=== PATIENT | male | born 1970 | race American Indian/Alaskan Native ===

== ENCOUNTER 2020-10-21 13:48 | Emergency (ER) | payer OTHER ==
--- NOTE | 2020-10-21 14:08 | Event Note ---
ED Screening Note ED Screening Note: 49-year-old male that presents with chest pain and SOB. Stated had covid in Feb and symptoms are worsening. This initial assessment/diagnostic orders/clinical plan/treatment(s) is/are subject to change based on patients health status, clinical progression and re- assessment by fellow clinical providers in the ED. Further treatment and workup at subsequent clinical providers discretion. Patient/guardian urged not to elope from the ED as their condition may be serious if not clinically assessed and m anaged. Initial orders include: cardiac workup
--- NOTE | 2020-10-21 14:30 | XRay Report ---
CHEST PA AND LATERAL VIEWS INDICATION: Chest Pain. COMPARISON: None. FINDINGS: Support devices: None. Heart: Within normal limits. Lungs/Pleura: No acute pulmonary or pleural findings. IMPRESSION: 1. No acute findings. Signer Name: Ja Nicolas MD Signed: 10/21/2020 2:26 PM Workstation Name: [id number]
[2020-10-21 15:03] LABS: Basophils % (Auto) 0.5 % (0.0-1.8); Eosinophils # (Auto) 0.1 K/mm3 (0.0-0.4); Eosinophils % (Auto) 1.2 % (0.0-4.3); Hemoglobin 13.5 gm/dl (11.8-15.2); Lymphocytes # (Auto) 2.1 K/mm3 (1.2-5.4); Lymphocytes % (Auto) 26.7 % (13.4-35.0); Mean Corpuscular HGB Conc 34 % (32-34); Mean Corpuscular Volume 92 fl (84-94); Monocytes # (Auto) 0.6 K/mm3 (0.0-0.8); Monocytes % (Auto) 7.5 % (0.0-7.3); Platelet Count 222 K/mm3 (140-440); Red Blood Count 4.37 M/mm3 (3.65-5.03); Red Cell Distribution Width 13.3 % (13.2-15.2)
[2020-10-21 15:11] LABS: INR 0.97 (0.87-1.13)
[2020-10-21 15:12] LABS: Partial Thromboplastin Time 28.1 Sec. (24.2-36.6)
[2020-10-21 15:20] LABS: Alanine Aminotransferase 37 units/L (7-56); Albumin 3.7 g/dL (3.9-5); BUN/Creatinine Ratio 13; Blood Urea Nitrogen 12 mg/dL (9-20); Calcium 8.5 mg/dL (8.4-10.2); Hemolysis Index 9
--- NOTE | 2020-10-21 16:45 | Emergency Department Report ---
ED Chest Pain HPI - General Chief Complaint: Chest Pain Stated Complaint: CHEST PAIN Time Seen by Provider: 10/21/20 14:06 Source: patient, EMS Mode of arrival: Wheelchair Limitations: No Limitations - History of Present Illness Initial Comments: Patient is 49 years old male with no significant past medical history. Patient stated that he had COVID-19 approximately 1 month ago and he checked negative after that. Patient presented to the ER complaining of substernal chest pain aching with no radiation. Patient denied any shortness of breath. No fever or cough. Patient works for [employer] and stated that he has been lifting heavy boxes recently. MD Complaint: chest pain -: This afternoon Onset: during exertion Pain Location: substernal Pain Radiation: none Severity scale (0 -10): 8 Quality: aching Consistency: intermittent - Related Data Allergies Allergy/AdvReac Type Severity Reaction Status Date / Time Penicillins AdvReac Hives Verified 10/21/20 14:05 Heart Score - HEART Score History: Slightly suspicious EKG: Normal Age: 45-65 Risk factors: 1-2 risk factors Troponin: < normal limit HEART Score: 2 - EKG Read Time Time EKG Completed: 14:07 EKG Read Time: 14:13 ED Review of Systems ROS: Stated complaint: CHEST PAIN Other details as noted in HPI Comment: All other systems reviewed and negative Constitutional: denies: chills, fever Respiratory: denies: cough, shortness of breath, SOB with exertion, SOB at rest, wheezing Cardiovascular: chest pain. denies: palpitations, dyspnea on exertion Gastrointestinal: denies: abdominal pain, nausea, vomiting Musculoskeletal: denies: back pain Neurological: headache. denies: weakness, numbness, paresthesias, confusion ED Past Medical Hx - Past Medical History Previous Medical History?: No - Surgical History Additional Surgical History: 2 hernia repairs. appendectomy - Social History Smoking Status: Never Smoker Substance Use Type: None ED Physical Exam - General Limitations: No Limitations General appearance: alert, in no apparent distress - Head Head exam: Present: atraumatic, normocephalic, normal inspection - Eye Eye exam: Present: normal appearance - ENT ENT exam: Present: normal exam, normal orophraynx, mucous membranes moist - Neck Neck exam: Present: normal inspection, full ROM. Absent: tenderness, meningismus - Respiratory Respiratory exam: Present: normal lung sounds bilaterally, chest wall tenderness - Cardiovascular Cardiovascular Exam: Present: regular rate, normal rhythm, normal heart sounds - GI/Abdominal GI/Abdominal exam: Present: soft, normal bowel sounds. Absent: distended, tenderness, guarding, rebound, rigid, organomegaly, mass, bruit, pulsatile mass, hernia - Extremities Exam Extremities exam: Present: normal inspection, full ROM, normal capillary refill. Absent: tenderness - Back Exam Back exam: Present: normal inspection, full ROM. Absent: CVA tenderness (R), CVA tenderness (L) - Neurological Exam Neurological exam: Present: alert, oriented X3, CN II-XII intact - Psychiatric Psychiatric exam: Present: normal mood - Skin Skin exam: Present: warm, intact, normal color ED Course Vital Signs 10/21/20 10/21/20 16:25 16:30 Pulse Rate 75 Respiratory 15 Rate Blood Pressure 139/79 O2 Sat by Pulse 96 100 Oximetry ED Medical Decision Making - Lab Data Result diagrams: 10/21/20 14:40 10/21/20 14:40 - EKG Data -: EKG Interpreted by Nh EKG shows normal: sinus rhythm Rate: normal - EKG Data Interpretation: no acute changes - Radiology Data Radiology results: report reviewed - Medical Decision Making Patient is 49 years old male with no significant past medical history. Patient stated that he had COVID-19 approximately 1 month ago and he checked negative after that. Patient presented to the ER complaining of substernal chest pain aching with no radiation. Patient denied any shortness of breath. No fever or cough. Patient works for [employer] and stated that he has been lifting heavy boxes recently. EKG is unremarkable with no ST elevation. Chest x-ray is negative for acute finding. Labs reviewed and is unremarkable including a negative troponin x2. Patient stated that his chest pain completely resolved. Patient advised to follow-up with his primary care physician in the next 2 to 3 days for outpatient cardiac work-up and advised to return to the ER if he develop any new symptoms. Critical care attestation.: If time is entered above; I have spent that time in minutes in the direct care of this critically ill patient, excluding procedure time. ED Disposition Clinical Impression: Acute chest pain, Costochondritis, acute Disposition: DC-01 TO HOME OR SELFCARE Is pt being admited?: No Condition: Stable Instructions: Chest Pain (ED), Costochondritis, [id number], Nonspecific Chest Pain, Adult Referrals: [facility] [Provider Group] - 3-5 Days
[2020-10-21 18:28] VITALS: BP 147/91
--- NOTE | 2020-10-22 09:37 | Electrocardiograph Report ---
[facility] Test Date: 2020-10-21 Test Time: 14:07:46 Pat Name: JUSTO FLAHERTY Department: Room: Gender: M [employer] Judge: HERMAN : 1970 Requested By: KIA VERONICA Order Number: [id number] Reading MD: Vick Diaz Measurements Intervals [place] Rate: 68 P: 56 NC: 160 QRS: -3 QRSD: 90 T: 35 QT: 377 QTc: 400 Interpretive Statements Sinus rhythm No previous ECG available for comparison Electronically Signed On 10-22-2020 9:37:30 EDT by Vick Diaz
== END 2020-10-21 18:43 | disposition home or self-care (01) ==
LOC: ED 13:48
DX: M94.0 Chondrocostal junction syndrome [Tietze] (principal); R07.89 Other chest pain; Z88.0 Allergy status to penicillin; Z90.49 Acquired absence of other specified parts of digestive tract; Z98.890 Other specified postprocedural states
CPT/HCPCS: 36415; 71046; 80053; 84484; 85025; 85610; 85730; 93005